=== PATIENT | female | born 1980 | race African-American/Black ===

== ENCOUNTER 2022-04-25 10:03 | Inpatient (IN) ==
[2022-04-25 11:22] LABS: Albumin 3.3 G/DL (3.4-5.0); Bilirubin,Total 0.4 MG/DL (0.20-1.00); Calcium 8.6 MG/DL (8.5-10.1); Osmolality,Calculated 276.4 MOS/KG (273-304); Potassium 3.8 MMOL/L (3.5-5.1); Total Protein 7.3 G/DL (6.4-8.2)
[2022-04-25 11:36] LABS: Barbiturates Screen,Urine Negative (Negative); Benzodiazepines Screen,Urine Negative (Negative); Cannabinoid Screen,Urine Positive (Negative); Opiate Screen,Urine Negative (Negative); Phencyclidine Screen,Urine Negative (Negative)
[2022-04-25 11:43] LABS: Basophils % 0.2 % (0.0-0.8); Eosinophils % 0.4 % (0.00-10.9); Hematocrit 18.7 VOL% (35.7-47.0); Immature Granulocytes % 0.4 %; Immature Granulocytes Absolute 0.02 #; Lymphocytes # 1.3 10*3/uL (1.4-4.0); Lymphocytes % 28.5 % (21.3-54.2); Mean Corpuscular HGB Conc 25.7 GM/DL (32-36); Mean Corpuscular Volume 67.3 FL (87-102); Mean Platelet Volume 9.2 FL (9.6-12.0); Monocytes # 0.6 10*3/uL (0.11-0.8); Monocytes % 13.3 % (1.7-12.7); Neutrophils % 57.2 % (38.7-73.9); Platelet Count 281 T/CUMM (130-400); Red Blood Count 2.78 MC/CUMM (3.8-5.5); Red Cell Distribution Width 29.9 % (9.3-17.3); White Blood Count 4.7 T/CUMM (4-12)
[2022-04-25 11:45] LABS: Hemoglobin 4.8 GM/DL (12.0-16.0)
[2022-04-25 11:47] LABS: Anisocytosis 3+; Platelet Estimate Normal
[2022-04-25 11:48] LABS: Hypochromia 1+; Macrocytosis Slight; Ovalocytes Few; Poikilocytosis Slight; Tear Drop Cells Few
[2022-04-25 12:06] LABS: Mucus,Urine Occasional /LPF (Occasional); Squamous Epithelial Cell,Urine Few /HPF (0-10); Urine Appearance Clear (Clear); Urine Color Yellow (Yellow)
[2022-04-25 12:07] LABS: Bilirubin,Urine Negative (Negative); Blood, Urine Negative (Negative); Glucose,Urine (UA) Negative (Negative); Ketones,Urine Trace mg/dL (Negative); Nitrite,Urine Negative (Negative); Protein,Urine Negative (Negative)
[2022-04-25] MEDS ORDERED: ONDANSETRON 4 MG/2 ML VIAL IV STA (12:34)
[2022-04-25] MEDS ORDERED: MORPHINE 2 MG/1 ML SYRINGE IV STA (12:34)
[2022-04-25 14:41] LABS: Bacteria Wet Mount None Seen /HPF; Clue Cells None Seen /HPF (None Seen); Epithelial Cell Wet Mount Moderate /HPF (Few/HPF); RBC Wet Mount Occasional /HPF; Trichomonas Wet Mount None Seen /HPF (None Seen); WBC Wet Mount Occasional /HPF; Yeast Wet Mount None Seen /HPF (None Seen)
[2022-04-25] MEDS ORDERED: ALBUTEROL 2.5 MG/3 ML NEB RESP TX PRN (14:51)
[2022-04-25] MEDS ORDERED: MORPHINE 2 MG/1 ML SYRINGE IV PRN (14:51)
[2022-04-25] MEDS ORDERED: DOCUSATE SODIUM 100 MG CAPSULE PO PRN (14:51)
[2022-04-25] MEDS ORDERED: ACETAMINOPHEN 325 MG TABLET PO PRN (14:51)
[2022-04-25] MEDS ORDERED: SIMETHICONE CHEW 125 MG TABLET PO PRN (14:51)
[2022-04-25] MEDS ORDERED: ONDANSETRON 4 MG/2 ML VIAL IV PRN (14:51)
[2022-04-25] MEDS ORDERED: SODIUM CHLORIDE 0.9% 1,000 ML IV PRN (14:55)
[2022-04-25 15:22] LABS: Folate 13.22 NG/ML (5.38-24.0)
[2022-04-25 15:24] LABS: % Iron Saturation 3.2 % (18-50); Ferritin 1.6 ng/mL (8-252)
[2022-04-25 18:05] LABS: PT Patient Result 10.8 SECS (10.1-12.1)
[2022-04-25] MEDS ORDERED: ZALEPLON 5 MG CAPSULE PO PRN (21:02)
[2022-04-26 02:56] LABS: Basophils % 0.2 % (0.0-0.8); Eosinophils # 0.1 10*3/uL (0.0-0.87); Eosinophils % 0.9 % (0.00-10.9); Hematocrit 24.3 VOL% (35.7-47.0); Hemoglobin 6.9 GM/DL (12.0-16.0); Immature Granulocytes % 0.2 %; Immature Granulocytes Absolute 0.01 #; Lymphocytes # 2.3 10*3/uL (1.4-4.0); Lymphocytes % 41.7 % (21.3-54.2); Mean Corpuscular HGB Conc 28.4 GM/DL (32-36); Mean Corpuscular Volume 70.6 FL (87-102); Mean Platelet Volume 9.3 FL (9.6-12.0); Monocytes # 0.6 10*3/uL (0.11-0.8); Platelet Count 251 T/CUMM (130-400); Red Blood Count 3.44 MC/CUMM (3.8-5.5); Red Cell Distribution Width 29.5 % (9.3-17.3); White Blood Count 5.4 T/CUMM (4-12)
[2022-04-26 03:20] LABS: Albumin 3.2 G/DL (3.4-5.0); Bilirubin,Total 0.6 MG/DL (0.20-1.00); Calcium 8.2 MG/DL (8.5-10.1); Osmolality,Calculated 279.3 MOS/KG (273-304); Potassium 4.3 MMOL/L (3.5-5.1); Risk Ratio 1.67; Thyroid Stimulating Hormone 5.48 uIU/ml (0.358-3.74); Total Protein 6.7 G/DL (6.4-8.2); VLDL Cholesterol 7.4 MG/DL
[2022-04-26] MEDS ORDERED: SODIUM CHLORIDE 0.9% 1,000 ML IV PRN ×2 (03:27→06:53)
[2022-04-26] MEDS ORDERED: CHOLECALCIFEROL 5,000 UNIT TABLET PO SCH (09:00)
[2022-04-26] MEDS ORDERED: FERRIC GLUCONATE COMPLEX 125 MG in SODIUM CHLORIDE 0.9% 100 ML IV SCH (09:00)
[2022-04-26 20:09] LABS: Hematocrit 31.8 VOL% (35.7-47.0); Hemoglobin 9.3 GM/DL (12.0-16.0)
[2022-04-26 20:10] VITALS: BP 126/77
[2022-04-26] MEDS ORDERED: PANTOPRAZOLE 40 MG VIAL IV SCH (21:00)
== END 2022-04-26 21:48 | disposition home or self-care (01) | DRG 812 ==
LOC: N.ED 10:03 → N.2E 14:51 → SUATTDRO 14:51 → N.2E 17:07
PROVIDERS: ADMIT Internal Medicine; ATTEND Internal Medicine